=== PATIENT | male | born 1985 | race Caucasian/White ===

== ENCOUNTER 2019-02-28 22:09 | Emergency (ER) | payer OTHER ==
[~2019-02-28] VITALS: Ht 187.9 cm; Wt 79.4 kg
== END 2019-03-01 03:27 | disposition short-term general hospital (02) ==
LOC: ED 22:09
DX: S81.011A Laceration without foreign body, right knee, initial encounter (principal); F17.200 Nicotine dependence, unspecified, uncomplicated; V86.99XA Unspecified occupant of other special all-terrain or other off-road motor vehicle injured in nontraffic accident, initial encounter; Y93.89 Activity, other specified; Y92.488 Other paved roadways as the place of occurrence of the external cause; Y99.8 Other external cause status